=== PATIENT | female | born 1990 | race Caucasian/White ===

== ENCOUNTER → 2020-07-20 02:32 | Outpatient (CLI) | payer OTHER, SELFPAY ==
[2020-07-20 21:58] LABS: SARS-CoV-2 RNA PCR Negative
== END ==
PROVIDERS: Visit Provider Obstetrics & Gynecology
DX: Z01.812 Encounter for preprocedural laboratory examination (principal); Z20.822 Contact with and (suspected) exposure to COVID-19
CPT/HCPCS: 36415; 85027; 93005; C9803; U0003; U0005

== ENCOUNTER 2020-07-20 09:30 | Outpatient (CLI) | payer OTHER, SELFPAY ==
--- NOTE | 2020-07-20 09:37 | ECG_ITS ---
Measurements Intervals Gray Rate: 77 P: 12 NH: 151 QRS: 66 QRSD: 85 T: 36 QT: 354 QTc: 403 Interpretive Statements SINUS RHYTHM BASELINE ARTIFACT- I, II, III, AVR, AVL, AVF NORMAL ECG Electronically Signed On 07-20-2020 12:01:28 FILM INSPECTOR by Kai Dominguez D.O.
[2020-07-20 10:10] LABS: Hematocrit 36.8 % (37.0-47.0); Hemoglobin 11.9 g/dL (12.0-15.0); Mean Corpuscular HGB Conc 32.3 g/dl (32-36); Mean Corpuscular Hemoglobin 27.2 pg (26-34); Mean Corpuscular Volume 84.2 fl (80-100); Mean Platelet Volume 9.2 fl (7.4-10.4); Platelet Count Result 438 k/mm3 (150-375); Red Blood Count 4.37 M/mm3 (4.2-5.4); Red Cell Distribution Width 13.6 % (11.5-14.5); White Blood Count 10.1 K/mm3 (4.5-10.0)
== END 2020-07-20 09:31 | disposition home or self-care (01) ==
LOC: ANHSURGERY 09:37
PROVIDERS: Visit Provider Obstetrics & Gynecology
DX: Z01.818 Encounter for other preprocedural examination (principal); N93.9 Abnormal uterine and vaginal bleeding, unspecified; R00.2 Palpitations
CPT/HCPCS: 36415; 85027; 93005

== ENCOUNTER 2020-07-23 00:54 | Day surgery (SDC) | payer OTHER, SELFPAY ==
[2020-07-17 12:44] VITALS: BMI 62.9
[2020-07-23] VITALS (10 sets, daily range): BP systolic 108–139; BP diastolic 59–86; PULSE 69–95; RESP 20–27; TEMP 36.4–36.6; O2SAT 94–100
[2020-07-23] MEDS: ACETAMINOPHEN 500 MG TABLET 1000 MG PO (10:28)
--- NOTE | 2020-07-23 11:13 | WPDANESEPPF ---
Anes - Initial Pre Proc Eval Procedure: Operation Date: 07/23/20 12:00 Proposed Procedures p Laparoscopic Bilateral Tubal Sterilization With Fulgeration - Emerita Murphy MD s Hysteroscopy, Haleigh Endometrial Ablation - Emerita Murphy MD Date/Time: 07/23/20 11:13 Surgeon: Emerita Murphy MD Pre Op Diagnosis: Ab. Uterine Bleeding, Desires Sterilization Patient Data Age: 30 Gender: F Height: 5 ft 6 in Weight: 178.6 kg Allergies Allergy/AdvReac Type Severity Reaction Status Date / Time diloxanide furoate Allergy Severe Seizure Verified 07/23/20 09:57 triamcinolone Allergy Severe Hives Verified 07/23/20 09:57 azithromycin Allergy Mild WATER Verified 07/23/20 09:57 BLISTERS ACROSS NECK desloratadine [From Clarinex] Allergy Mild Rash Verified 07/23/20 09:57 clindamycin AdvReac Intermediate HALLUCINATI Verified 07/23/20 09:57 ONS erythromycin base AdvReac Intermediate WATER Verified 07/23/20 09:57 BLISTERS ACROSS ENTIRE BODY ketorolac AdvReac Intermediate VERY Verified 07/23/20 09:57 DIZZY tobramycin AdvReac Intermediate HALLUCINATI Verified 07/23/20 09:57 ONS ampicillin AdvReac Mild Rash Verified 07/23/20 09:57 cephalexin AdvReac Mild Rash Verified 07/23/20 09:57 clobetasol AdvReac Mild Rash Verified 07/23/20 09:57 cyclobenzaprine AdvReac Mild DIZZY Verified 07/23/20 09:57 hydroxyzine AdvReac Mild Rash Verified 07/23/20 09:57 loratadine AdvReac Mild Rash Verified 07/23/20 09:57 piperacillin AdvReac Mild Rash Verified 07/23/20 09:57 polymyxin B AdvReac Mild Rash Verified 07/23/20 09:57 prednisone AdvReac Mild Rash Verified 07/23/20 09:57 topiramate AdvReac Mild Rash Verified 07/23/20 09:57 AMMONIUM LACTATE Allergy Severe Hives Uncoded 07/23/20 09:57 AMPICILLIN SULBACTAN AdvReac Mild Rash Uncoded 07/23/20 09:57 AMPICILLIN SULBACTAN SODIUM AdvReac Mild Rash Uncoded 07/23/20 09:57 Home Medications Medication Instructions Recorded Confirmed Type isotretinoin [Myorisan] 40 mg PO ONCE 07/17/20 07/23/20 History Patient hx anesthesia problems: none Family hx anesthesia problems: none PMF Past Medical History Medical History (Updated 07/23/20 @ 11:14 by Jaziel Gan MD) Anxiety Depression PTSD (post-traumatic stress disorder) Super-super obese Social History Social History Years smoked: 0.5 Smoking status: Former smoker Smoking end date: 05/31/09 Alcohol intake: current Alcohol use details: 2 DRINKS/MONTH Substance use: never Living arrangements: with family Spiritual care concerns: No Anes - Eval Final PreProcedure Day of Procedure 07/23/20 11:13 Patient weight: other (super super morbid obesity) Heart: regular rate and rhythm Lungs: clear to auscultation Airway: Mallampati scale class III Neurological: alert and oriented ASA classification: IV Emergent: no Anesthetic plan: proceed Anesthesia type and monitoring: general ETT and standard monitoring Informed Consent: The patient's anesthetic plan and its attendant risks and benefits were discussed with the patient/family/POA. Questions were solicited and answers provided to the satisfaction of the patient/family/POA.
[2020-07-23] MEDS: LACTATED RINGERS 1,000 ML 30 ML IV CONT ×2 (11:24→13:05)
--- NOTE | 2020-07-23 11:55 | WPDHPUPDATE1 ---
History and Physical Update Update Date/Time: 07/23/20 11:55 History and Physical has been reviewed, including an updated exam of the patient. There are NO changes in the patient's condition. Risks, benefits, and alternatives have been discussed and questions answered. Patient agrees to proceed with procedure. Hysteroscopy D&C with endometrial ablation and tubal sterilization/laparoscopic
[2020-07-23] MEDS: BUPIVACAINE/EPINEPHRINE 0.25% 50 ML VIAL INFILTRATE (12:26)
--- NOTE | 2020-07-23 13:03 | P.OP_ITS ---
Procedure Note - Detailed Date of procedure: 07/23/20 Pre-op diagnosis: Ab. Uterine Bleeding, Desires Sterilization Post-op diagnosis: same Procedure performed: Laparoscopic bilateral tubal fulguration for sterilization, hysteroscopy D&C with endometrial ablation (haleigh) Description of procedure: The patient was taken to the operating room where general anesthesia was found to be adequate. Benavides catheter placed. A speculum was used to visualize the cervix and a single toothed tenaculum placed on the anterior lip. Uterus sounded to 8cm Uterine manipulator placed and affixed to the tenaculum. The speculum was removed. Attention was then turned to the umbilicus which was injected with 0.5% marcaine with epinephrine, incision made just under the umbilicus in a previous incision. Hemostats used to dissect through the subcutaneous tissue then veres needle used to enter into the peritoneum where saline drop test was positive for entry. Pneumoperitoneum was created to 15mmHg, then a 5mm port was placed with optical entry. However once placing the patient in Trendelenburg, her intraabdominal pressures increased to 18-19mmHg so the pressure setting was changed to 10mmHg which kept her at 15- 17mmHg. She is obese so this was slightly difficult to manage. A suprapubic port was placed with direct visualization and 5mm used. The uterus , tubes, and ovaries were visible. The left ovary was twisted upward over the omentum so this was allowed to drop down in the anatomic position. The uterus was elevated with the manipulator and left tube visualized and grasp with Klelylyenger. The fallopian tube was cauterized with bipolar cautery along the mid portion of the tube approximately 2cm. Two passes performed. Similarly the right tube was cauterized. Both were imaged. Bilateral ovaries appeared normal. The laparoscopy was complete so pneumoperitoneum was released and ports removed. Incisions closed with 4-0 Monocryl and the patient was taken out of trendelenberg. Attention was then given to the cervix. The speculum reinserted and the cervix serially dialted with hegar dilators. The 5mm hysteroscope was inserted and cavity distension medium was 0.9% saline. Bilateral tubal ostia visible. Some irregularity to the lining on the left anterior wall. So a sharp currette was used after the camera removed to scrape this area. No specimen was able to be collected as the lining was firm/smooth. So the Haleigh was prepared and inserted and set to a cavity length of 4cm. The cavity assessment passed and the procedure completed without complication. the haleigh was removed and camera reinserted with excellent coverage noted. All instruments were then removed from the vagina and a ring forcep placed on the left tenaculum site for hemostasis. The benavides was removed then the ring forcep removed and there was good hemostasis. So the procedure was complete. All sponge lap and needle counts were correct and the patient was taken to recovery in stable condition. Anesthesia: GETA Surgeon: Emerita Murphy MD Estimated blood loss (mL): 10 Drains: No Packing: No Pathology: none sent Complications: No immediate complications Condition: stable Findings: Obese patient made pneumoperitoneum difficult without achieving higher pressures, so less Trendelenberg was necessary and less intraabdominal pressure settings
[2020-07-23] MEDS: fentaNYL CITRATE INJ (*CRX) 100 MCG/2 ML VIAL 25 MCG IV PUSH ×4 (13:10→13:18)
[2020-07-23] MEDS: HYDROmorphone HCL INJ (*CRX) 1 MG/ML SYR 0.5 MG IV PUSH ×4 (13:21→13:41)
--- NOTE | 2020-07-23 13:23 | SUR.PHASEI ---
[id number] - dr. melchor at bedside talking with pt
[2020-07-23] MEDS: ONDANSETRON INJ 4 MG/2 ML VIAL IV PUSH (13:54)
[2020-07-23] MEDS: oxyCODONE HCL (*CRX) 5 MG TAB IR PO (14:27)
== END 2020-07-23 15:29 | disposition home or self-care (01) ==
PROVIDERS: Visit Provider Obstetrics & Gynecology
PROC: (CPT 58671; principal; 2020-07-23 12:00)
PROC: 0U5B8ZZ Destruction of Endometrium, Via Natural or Artificial Opening Endoscopic (ICD-10-PCS; CPT 58563; 2020-07-23 12:00)
DX: N93.9 Abnormal uterine and vaginal bleeding, unspecified (principal); Z30.2 Encounter for sterilization; F41.9 Anxiety disorder, unspecified; F32.9 Major depressive disorder, single episode, unspecified; F43.10 Post-traumatic stress disorder, unspecified; E66.01 Morbid (severe) obesity due to excess calories; Z68.44 Body mass index [BMI] 60.0-69.9, adult
CPT/HCPCS: 58563; 58670; A9270; J1100; J1170; J2250; J2405; J2704; J2710; J3010; J7030; J7120